=== PATIENT | female | born 1995 | race American Indian/Alaskan Native ===

== ENCOUNTER 2018-08-30 01:46 | Emergency (ER) | payer OTHER ==
[2018-08-30 01:48] VITALS: BMI 26.4
[2018-08-30] MEDS ORDERED: Albuterol 0.083% Inhal Sol (2.5 mg/3 mL) UD IH STA (03:01)
[2018-08-30 03:08] LABS: SQUAMOUS EPITHIAL 5 /hpf (0-5); URINE BACTERIA RARE (<OCC); URINE BILIRUBIN NEGATIVE (NEGATIVE); URINE BLOOD 3+ (NEGATIVE); URINE CLARITY Clear (Clear); URINE COLOR Straw (YELLOW); URINE GLUCOSE (UA) NORMAL (Normal); URINE LEUKOCYTE ESTERASE 1+ Leu/uL (Negative); URINE PROTEIN NEGATIVE (NEGATIVE); URINE UROBILINOGEN NORMAL mg/dL (0.2-1.0)
[2018-08-30 03:09] LABS: HCG,QUALITATIVE URINE NEGATIVE (NEGATIVE)
[2018-08-30] MEDS ORDERED: Albuterol 0.083% Inhal Sol (2.5 mg/3 mL) UD ONE (03:16)
--- NOTE | 2018-08-30 03:27 | C.PDOC ---
History Of Present Illness 23 y/o female, smoker presents to the ED for evaluation of productive cough for 2 months. Cough is productive of clear sputum, developed some chest tightness with coughing for past few days. Additionally, patient complains of intermittent diffuse abdominal cramping and nausea for the past month. Otherwise pt denies fevers, chills, sore throat, drooling, neck pain, CP, SOB, dyspnea, wheezing, palpitation, vomiting, diarrhea, or UTI symptoms. Ambulate to ED for evaluation, not in nay apparent distress. Strong cannabis odor noted. Time Seen by Provider: 08/30/18 02:00 Chief Complaint (Nursing): Cough, Cold, Congestion History Per: Patient History/Exam Limitations: no limitations Onset/Duration Of Symptoms: Days Current Symptoms Are (Timing): Still Present Associated Symptoms: Cough, Sputum (clear) Past Medical History Reviewed: Historical Data, Nursing Documentation, Vital Signs Vital Signs: Last Vital Signs Temp 97.4 F L 08/30/18 02:02 Pulse 67 08/30/18 02:02 Resp 20 08/30/18 02:02 BP 124/70 08/30/18 02:02 Pulse Ox 100 08/30/18 02:02 - Medical History PMH: Asthma Surgical History: No Surg Hx Family History: States: Unknown Family Hx - Social History Hx Tobacco Use: Yes Hx Alcohol Use: Yes (social) Hx Substance Use: No - Immunization History Hx Tetanus Toxoid Vaccination: No Hx Influenza Vaccination: No Hx Pneumococcal Vaccination: No Review Of Systems Constitutional: Negative for: Fever, Chills, Sweats ENT: Negative for: Throat Pain Cardiovascular: Positive for: Other (chest tightness). Negative for: Chest Pain Respiratory: Positive for: Cough, Sputum. Negative for: Shortness of Breath, Wheezing Gastrointestinal: Positive for: Nausea, Abdominal Pain. Negative for: Vomiting, Diarrhea, Constipation, Hematochezia Genitourinary: Negative for: Dysuria, Frequency, Incontinence, Hematuria Neurological: Negative for: Headache, Dizziness Physical Exam - Physical Exam Appears: Well, Non-toxic, No Acute Distress Skin: Normal Color, Warm, No Rash Head: Normacephalic Eye(s): bilateral: PERRL Ear(s): Bilateral: Normal (no erythema) Nose: No Flaring, No Discharge Oral Mucosa: Moist, No Drooling Throat: No Erythema, No Exudate, No Drooling Neck: Trachea Midline, Supple Chest: Symmetrical Cardiovascular: Rhythm Regular, No Murmur, No JVD Respiratory: No Decreased Breath Sounds, No Accessory Muscle Use, No Rales, No Rhonchi, No Stridor, Wheezing (scattered Right base) Gastrointestinal/Abdominal: Bowel Sounds (normal), Soft, Tenderness (mild epigastric tenderness), No Distention, No Guarding, No Rebound Back: No CVA Tenderness Extremity: Normal ROM, No Tenderness, No Deformity, No Swelling Extremity: Bilateral: Atraumatic, Normal Color And Temperature, Normal ROM Neurological/Psych: Oriented x3, Normal Speech, Normal Motor, Normal Sensation, Normal Reflexes ED Course And Treatment ECG: Interpreted By Me, Viewed By Me ECG Rhythm: Sinus Rhythm ECG Interpretation: Normal Interpretation Of ECG: SR@56/min, NAD, no acute T wave or ST-T changes O2 Sat by Pulse Oximetry: 100 (RA) Pulse Ox Interpretation: Normal - Radiology CXR: Interpreted by Me, Viewed By Me CXR Interpretation: Yes: No Acute Disease Progress Note: EKG ordered and reviewed. Urine sent to the lab. CXR taken. Pt given albuterol neb and po prednisone. On re-eval, pt is awake, alert, comfortable, not in resp. distress. Non-toxic, tolerate PO well in ED. PulseOx 100% RA. ENT: no acute findings. neck: SUpple, (-) JVD, (-) carotid bruits B/L. Lungs: CTA B/L, BS equal B/L. CVS: (+)S1S2, reg. Abd: benign, (-) guarding, (-) rebound. neuorlogicaly intact. CXR, EKG -normal s tudy. UA- no acute findings. preg (-). Pt has clinical findings c/w acute bronchitis, asthma, smoker. EPigastric pain. Pt advised. ref. to f/u with PMD in 1-2 days for re-eavl. return if any worsening or new changes. Disposition Counseled Patient/Family Regarding: Studies Performed, Diagnosis, Need For Followup, Rx Given - Disposition Referrals: Sil Cerrato MD [Staff Provider] - Disposition: HOME/ ROUTINE Disposition Time: 03:32 Condition: STABLE Additional Instructions: Encourage fluids Take medication as prescribed Follow up with PMD in 2-3 days for re-evaluation. return to ED if any worsening or new changes Prescriptions: Albuterol HFA [Ventolin HFA 90 mcg/actuation (8 g)] 1 puff IH Q6 #1 inhaler Azithromycin [Zithromax] 250 mg PO DAILY #4 tab Prednisone [Deltasone] 40 mg PO DAILY #6 tablet Instructions: Asthma, Adult (DC), Acute Bronchitis Forms: [facility] (Dominican) - Clinical Impression Clinical Impression: Bronchitis, Asthma, Epigastric abdominal pain - PA / [employer] / Resident Statement MD/DO has reviewed & agrees with the documentation as recorded. - Scribe Statement The provider has reviewed the documentation as recorded by the Scribe (Stacey Travis) All medical record entries made by the Scribe were at my direction and personally dictated by me. I have reviewed the chart and agree that the record accurately reflects my personal performance of the history, physical exam, medical decision making, and the department course for this patient. I have also personally directed, reviewed, and agree with the discharge instructions and disposition.
[2018-08-30 03:34] VITALS: RESP 16
[2018-08-30 03:42] VITALS: O2SAT 100
[2018-08-30 03:59] VITALS: BP 107/81; PULSE 63; TEMP 97.8
--- NOTE | 2018-08-30 09:21 | RAD ---
Date of service: 08/30/2018 HISTORY: Cough COMPARISON: No prior. TECHNIQUE: Chest PA and lateral FINDINGS: LUNGS: No active pulmonary disease. PLEURA: No significant pleural effusion identified. No pneumothorax apparent. CARDIOVASCULAR: No aortic atherosclerotic calcification present. Normal cardiac size. No pulmonary vascular congestion. OSSEOUS STRUCTURES: No significant abnormalities. VISUALIZED UPPER ABDOMEN: Normal. OTHER FINDINGS: None. IMPRESSION: No active disease.
--- NOTE | 2018-08-31 20:04 | CARD ---
APPROVED REPORT Date of service: 08/30/2018 EKG Measurement Heart [id number] <Conclusion> Sinus bradycardia Otherwise normal ECG
== END 2018-08-30 03:58 | disposition home or self-care (01) ==
LOC: C.ER 01:46
DX: J45.909 Unspecified asthma, uncomplicated (principal); R10.13 Epigastric pain

== ENCOUNTER 2018-10-03 12:48 | Emergency (ER) | payer OTHER ==
[2018-10-03 12:48] VITALS: BMI 26.4
[2018-10-03 13:04] VITALS: O2SAT 100
[2018-10-03] MEDS ORDERED: Sodium Chloride 0.9% 1,000 ML IV ONE (13:48)
[2018-10-03] MEDS ORDERED: Sodium Chloride 0.9% 1,000 ML ONE (14:03)
--- NOTE | 2018-10-03 14:04 | C.PDOC ---
History Of Present Illness 23 years old female presents to ED for complaints of developing swelling, pain, and redness of right mandible that began yesterday. Patient reports she has bad dental caries on that side. She also reports associated fever, chills, nausea, and headache. Patient states she experienced similar symptoms over the summer but symptoms resolved spontaneously. Patent states she has not seen a dentist. Time Seen by Provider: 10/03/18 13:35 Chief Complaint (Nursing): Abdominal Pain History Per: Patient History/Exam Limitations: no limitations Onset/Duration Of Symptoms: Hrs Current Symptoms Are (Timing): Still Present Recent travel outside of the [place]: No Past Medical History Reviewed: Historical Data, Nursing Documentation, Vital Signs Vital Signs: Last Vital Signs Temp 97.4 F L 10/03/18 13:01 Pulse 85 10/03/18 13:01 Resp 19 10/03/18 13:01 BP 104/68 10/03/18 13:01 Pulse Ox 100 10/03/18 13:01 - Medical History PMH: Asthma, Seizures Family History: States: Unknown Family Hx - Social History Hx Tobacco Use: Yes Hx Alcohol Use: No (social) Hx Substance Use: No - Immunization History Hx Tetanus Toxoid Vaccination: No Hx Influenza Vaccination: No Hx Pneumococcal Vaccination: No Review Of Systems Constitutional: Positive for: Fever, Chills Gastrointestinal: Positive for: Nausea. Negative for: Vomiting, Abdominal Pain, Diarrhea Skin: Positive for: Other (Swelling, pain, and redness of right mandible) Neurological: Positive for: Headache Physical Exam - Physical Exam Appears: Non-toxic, No Acute Distress Skin: Normal Color, Warm, Dry, No Rash Head: Atraumatic, Normacephalic Eye(s): bilateral: Normal Inspection, PERRL, EOMI Oral Mucosa: Moist Gingiva: Other (Swelling, redness, tenderness of jaw and submandibular. Swelling along buccal gingiva with tenderness. Floor of mouth not swollen. Right lower second molars cracked. ) Neck: Normal ROM, Supple Chest: Symmetrical, No Tenderness Cardiovascular: Rhythm Regular, No Murmur Respiratory: Normal Breath Sounds, No Rales, No Rhonchi, No Wheezing Gastrointestinal/Abdominal: Soft, No Tenderness Extremity: Normal ROM Extremity: Bilateral: Atraumatic, Normal Color And Temperature, Normal ROM Pulses: Left Radial: Normal, Right Radial: Normal Neurological/Psych: Oriented x3, Normal Speech Gait: Steady ED Course And Treatment - Laboratory Results Result Diagrams: 10/03/18 14:22 10/03/18 14:22 Lab Interpretation: No Acute Changes O2 Sat by Pulse Oximetry: 100 (RA) Pulse Ox Interpretation: Normal - CT Scan/US Facial CT Other Rad Studies (CT/US): Read By Radiologist, Radiology Report Reviewed CT/US Interpretation: Accession No. : [id number]. Patient Name / ID : TERRENCE GUTIERREZ / [id number]. Exam Date : 10/03/2018 16:08:31 ( Approved ). Study Comment : Sex / Age : F / 23Y. Creator : Jaydon Ovalle. Dictator : Janett Markham. Director Of Patient Financial Services : Water Pump Installer : Janett Markham. Approver2 : Report Date : 10/03/2018 16:16:39. My Comment : . Date of service: 10/03/2018. PROCEDURE: CT MAXILLOFACIAL BONES WITH CONTRAST. HISTORY: r/o abscess right mandible. COMPARISON: None. TECHNIQUE: Contiguous axial CT images of the maxillofacial bones were obtained following administration of IV contrast. Coronal and sagittal reformats were generated. Intravenous contrast Dose: 100 mL of Visipaque 320. Radiation dose: Total exam DLP = 716.53 mGy-cm. This CT exam was performed using one or more of the following dose reduction techniques: Automated exposure control, adjustment of the mA and/or kV according to patient size, and/or use of iterative reconstruction technique. FINDINGS: NASAL BONES: Unremarkable. OR BITS: Unremarkable. PARANASAL SINUSES/ MASTOIDS: Clear. MAXILLA: Unremarkable. MANDIBLE/ TEMPOROMANDIBULAR JOINTS: There asymmetry in the size and the sclerotic borders to the left and right mental foramen of the mandible (axial series 4, image 49-that on the right has less sclerotic margins in that on the right has a larger foraminal diameter associated with it. There is a sclerosis in the left mandibular body which is not apparent on right side (axial series 4, image 45). Bordering this asymmetrical prominence of the right mental foramen there is diffuse asymmetrical soft tissue prominence of the right perimandibular musculature here. A phlegmon here or diffuse myositis here is a consideration. There is a superficial nearly flat tiny 8 x 4 mm focal low- density compatible with a small right periosteal/subperiosteal developing abscess (axis series 3, image 30). There is increased right periapical posterior mandibular tooth radiolucency consistent with caries here-this is r egional to the right perimandibular asymmetrical soft tissue findings and the small focal flat fluid like collection as well. (series 4, image 59). No periosteal reaction is perceived. No gross or suspicious appearing lymphadenopathy seen. No gas-forming cellulitis noted. SKULL BASE: Unremarka ble. TEMPORAL BONES: Middle ears and mastoid grossly unremarkable. OTHER FINDINGS: Dental amalgam artifact obscures further evaluation of the right mandible. IMPRESSION: Right/buccal sided flory mandibular body asymmetrical muscle soft tissue swelling/prominence with small flat juxta osseous/gilbert bperiosteal fluid collection compatible with a small flat developing abscess here. This is regional to posterior right mandibular periapical lucency compatible with caries here. Dental/oral surgical consultation follow-up recommended. Reevaluation Time: 18:09 Reassessment Condition: Improved (after Iv antibiotics and pain medication.) Medical Decision Making Medical Decision Making: Plan: * IV Fluids * Toradol * Zofran * Blood work * Urinalysis Disposition - Disposition Referrals: [facility] [Outside] Disposition: HOME/ ROUTINE Disposition Time: 18:10 Condition: IMPROVED Additional Instructions: Follow up with your dentist as soon as possible. Prescriptions: Acetaminophen with Codeine [Tylenol with Codeine #3 Tablet] 1 each PO Q4 PRN #10 tablet PRN Reason: Pain, Severe (8-10) Clindamycin [Cleocin] 300 mg PO QID #40 cap Instructions: Tooth Abscess (DC) Forms: [employer] (Irish) - Clinical Impression Clinical Impression: Dental abscess - Scribe Statement The provider has reviewed the documentation as recorded by the Scribe Xavier Linares All medical record entries made by the Scribe were at my direction and personally dictated by me. I have reviewed the chart and agree that the record accurately reflects my personal performance of the history, physical exam, medical decision making, and the department course for this patient. I have also personally directed, reviewed, and agree with the discharge instructions and disposition.
[2018-10-03 14:35] LABS: BASO % 0.3 % (0.0-2.0); EOS % 0.3 % (0.0-4.0); HEMOGLOBIN 13.1 g/dL (11.0-16.0); LYMPH # 0.9 K/uL (1.0-4.3); LYMPH % 16.2 % (20.0-40.0); MEAN CELL VOLUME 82.5 fL (81.0-99.0); MEAN CORPUSCULAR HGB CONC 32.7 g/dL (33.0-37.0); MEAN PLATELET VOLUME 9.4 fL (7.2-11.7); MONO # 0.5 K/uL (0.0-0.8); MONO % 8.1 % (0.0-10.0); NEUT # 4.3 K/uL (1.8-7.0); NEUT % 75.1 % (50.0-75.0); RBC 4.87 Mil/uL (3.80-5.20); RED CELL DISTRIBUTION WIDTH 15.3 % (11.5-14.5); WHITE BLOOD COUNT 5.8 K/uL (4.8-10.8)
[2018-10-03 14:36] LABS: HCG,QUALITATIVE URINE NEGATIVE (NEGATIVE)
[2018-10-03 14:45] LABS: ALB/GLOB RATIO 1.5 (1.0-2.1); ALBUMIN 4.2 g/dL (3.5-5.0); ALT/SGPT 18 U/L (9-52); AST/SGOT 18 U/L (14-36); BLOOD UREA NITROGEN 8 mg/dL (7-17); CALCIUM 8.5 mg/dl (8.6-10.4); GFR NON-AFRICAN AMERICAN > 60
[2018-10-03 14:56] LABS: SQUAMOUS EPITHIAL 11 /hpf (0-5); URINE BILIRUBIN 1+ (NEGATIVE); URINE BLOOD 1+ (NEGATIVE); URINE CLARITY Hazy (Clear); URINE COLOR Amber (YELLOW); URINE GLUCOSE (UA) NORMAL (Normal); URINE LEUKOCYTE ESTERASE TRACE Leu/uL (Negative); URINE PROTEIN 3+ mg/dL (NEGATIVE)
[2018-10-03] MEDS ORDERED: Iodixanol 320 MG/ML 100 ML BOTTLE IV ONE ×2 (15:49→16:32)
--- NOTE | 2018-10-03 16:52 | CT ---
Date of service: 10/03/2018 PROCEDURE: CT MAXILLOFACIAL BONES WITH CONTRAST HISTORY: r/o abscess right mandible COMPARISON: None. TECHNIQUE: Contiguous axial CT images of the maxillofacial bones were obtained following administration of IV contrast. Coronal and sagittal reformats were generated. Intravenous contrast Dose: 100 mL of Visipaque 320 Radiation dose: Total exam DLP = 716.53 mGy-cm. This CT exam was performed using one or more of the following dose reduction techniques: Automated exposure control, adjustment of the mA and/or kV according to patient size, and/or use of iterative reconstruction technique. FINDINGS: NASAL BONES: Unremarkable. ORBITS: Unremarkable. PARANASAL SINUSES/ MASTOIDS: Clear. MAXILLA: Unremarkable. MANDIBLE/ TEMPOROMANDIBULAR JOINTS: There asymmetry in the size and the sclerotic borders to the left and right mental foramen of the mandible (axial series 4, image 49-that on the right has less sclerotic margins in that on the right has a larger foraminal diameter associated with it. There is a sclerosis in the left mandibular body which is not apparent on right side (axial series 4, image 45). Bordering this asymmetrical prominence of the right mental foramen there is diffuse asymmetrical soft tissue prominence of the right perimandibular musculature here. A phlegmon here or diffuse myositis here is a consideration. There is a superficial nearly flat tiny 8 x 4 mm focal low-density compatible with a small right periosteal/subperiosteal developing abscess (axis series 3, image 30). There is increased right periapical posterior mandibular tooth radiolucency consistent with caries here-this is regional to the right perimandibular asymmetrical soft tissue findings and the small focal flat fluid like collection as well. (series 4, image 59). No periosteal reaction is perceived. No gross or suspicious appearing lymphadenopathy seen. No gas-forming cellulitis noted. SKULL BASE: Unremarkable. TEMPORAL BONES: Middle ears and mastoid grossly unremarkable. OTHER FINDINGS: Dental amalgam artifact obscures further evaluation of the right mandible IMPRESSION: Right/buccal sided flory mandibular body asymmetrical muscle soft tissue swelling/prominence with small flat juxta osseous/subperiosteal fluid collection compatible with a small flat developing abscess here. This is regional to posterior right mandibular periapical lucency compatible with caries here. Dental/oral surgical consultation follow-up recommended. Comments: Study marked for PA review .
[2018-10-03] MEDS ORDERED: Clindamycin 600mg/50ml D5W 600 MG/50 ML VIAL IVPB SCH (17:15)
[2018-10-03] MEDS ORDERED: Clindamycin 600mg/50ml NS 600 MG/50 ML BAG IVPB ONE (17:26)
[2018-10-03 18:44] VITALS: BP 99/61; PULSE 64; RESP 18; TEMP 97.9
== END 2018-10-03 18:45 | disposition home or self-care (01) ==
LOC: C.ER 12:48
DX: K04.7 Periapical abscess without sinus (principal); Z72.0 Tobacco use
CPT/HCPCS: 70481; 80053; 81001; 84703; 85025; 96374; 96375; 99285; J1885; J2405; J7030; Q9967

== ENCOUNTER 2018-10-23 15:31 | Emergency (ER) | payer OTHER ==
[2018-10-23 15:31] VITALS: BMI 26.4
[2018-10-23] MEDS ORDERED: levETIRAcetam 1,000 MG in Sodium Chloride 0.9% 100 ML IVPB STA (15:41)
--- NOTE | 2018-10-23 15:52 | C.PDOC ---
History Of Present Illness 23 y/o female presents to the ED following witnessed seizure this afternoon. Patient reports she had a seizure yesterday morning. She admits to noncompliance with her Keppra regimen. Reports her boyfriend gave her the medication yest erday, however she did not take medication today, and subsequently had another seizure. She now presents complaining of a headache. States she was incontinent of urine when she came to. Otherwise denies any tongue bite or injury. No obvious head trauma. Time Seen by Provider: 10/23/18 15:36 Chief Complaint (Nursing): Seizure History Per: Patient History/Exam Limitations: no limitations Recent Seizure Activity Began: Just Before Arrival Number Of Seizures: One Precipitating Factor(s): Missed Dose Of Anti-seizure Medication Associated Symptoms: Incontinence Of Urine Past Medical History Reviewed: Historical Data, Nursing Documentation, Vital Signs Vital Signs: Last Vital Signs Temp 98.7 F 10/23/18 15:38 Pulse 66 10/23/18 15:38 Resp 14 10/23/18 15:38 BP 99/40 L 10/23/18 15:38 Pulse Ox 97 10/23/18 15:38 - Medical History PMH: Asthma, Seizures Family History: States: Unknown Family Hx - Social History Hx Tobacco Use: Yes Hx Alcohol Use: No (social) Hx Substance Use: No - Immunization History Hx Tetanus Toxoid Vaccination: No Hx Influenza Vaccination: No Hx Pneumococcal Vaccination: No Review Of Systems Constitutional: Negative for: Fever, Chills Eyes: Negative for: Vision Change ENT: Negative for: Other (tongue bite) Cardiovascular: Negative for: Chest Pain Respiratory: Negative for: Cough, Shortness of Breath Gastrointestinal: Negative for: Nausea, Vomiting Musculoskeletal: Negative for: Neck Pain, Back Pain Skin: Negative for: Lesions Neurological: Positive for: Seizures, Headache. Negative for: Weakness, Numbness, Change in Speech, Dizziness Physical Exam - Physical Exam Appears: Non-toxic, No Acute Distress Skin: Warm, Dry Head: Atraumatic, Normacephalic, No Swelling, No Laceration Eye(s): bilateral: Normal Inspection, PERRL, EOMI Nose: Normal Oral Mucosa: Moist Neck: Normal ROM Chest: Symmetrical Cardiovascular: Rhythm Regular, No Murmur Respiratory: Normal Breath Sounds, No Accessory Muscle Use Gastrointestinal/Abdominal: Soft, No Tenderness, No Distention Extremity: Bilateral: Atraumatic, Normal Color And Temperature Pulses: Left Dorsalis Pedis: Normal, Right Dorsalis Pedis: Normal Neurological/Psych: Other (Alert, Oriented, responding appropriate to questions) ED Course And Treatment - Laboratory Results Result Diagrams: 10/23/18 15:56 10/23/18 15:56 Lab Interpretation: No Acute Changes ECG: Interpreted By Me ECG Rhythm: Sinus Bradycardia ECG Interpretation: No Acute Changes O2 Sat by Pulse Oximetry: 97 (RA) Pulse Ox Interpretation: Normal Progress Note: Patient treated with Keppra 1000mg IVPB in ED. Reevaluation Time: 17:22 Reassessment Condition: Improved Medical Decision Making Medical Decision Making: Impression: Seizures Plan: - CMP - CBC - EKG - IV Keppra 1000mg infusing Disposition Counseled Patient/Family Regarding: Studies Performed, Diagnosis, Need For Followup - Disposition Referrals: [facility] [Outside] Disposition: HOME/ ROUTINE Disposition Time: 17:23 Condition: IMPROVED Instructions: Seizures, Adult (DC) Forms: [facility] (Uzbek) - Clinical Impression Clinical Impression: Seizure disorder - Scribe Statement The provider has reviewed the documentation as recorded by the Jamee Travis Provider Attestation: All medical record entries made by the Poloibe were at my direction and personally dictated by me. I have reviewed the chart and agree that the record accurately reflects my personal performance of the history, physical exam, medical decision making, and the department course for this patient. I have also personally directed, reviewed, and agree with the discharge instructions and disposition.
[2018-10-23 16:00] LABS: BASO % 0.7 % (0.0-2.0); EOS # 0.1 K/uL (0.0-0.7); EOS % 1.6 % (0.0-4.0); HEMOGLOBIN 12.5 g/dL (11.0-16.0); LYMPH # 1.7 K/uL (1.0-4.3); LYMPH % 38.5 % (20.0-40.0); MEAN CORPUSCULAR HEMOGLOBIN 26.4 pg (27.0-31.0); MEAN PLATELET VOLUME 9.5 fL (7.2-11.7); MONO # 0.3 K/uL (0.0-0.8); MONO % 6.9 % (0.0-10.0); NEUT # 2.3 K/uL (1.8-7.0); NEUT % 52.3 % (50.0-75.0); NRBC % 0.2 % (0.0-2.0); RBC 4.74 Mil/uL (3.80-5.20); RED CELL DISTRIBUTION WIDTH 15.3 % (11.5-14.5); WHITE BLOOD COUNT 4.5 K/uL (4.8-10.8)
[2018-10-23 16:19] LABS: ALB/GLOB RATIO 1.6 (1.0-2.1); ALBUMIN 4.2 g/dL (3.5-5.0); ALT/SGPT 20 U/L (9-52); AST/SGOT 22 U/L (14-36); BLOOD UREA NITROGEN 7 mg/dL (7-17); GFR NON-AFRICAN AMERICAN > 60
[2018-10-23 17:35] VITALS: BP 103/63; PULSE 63; RESP 15; TEMP 98.2; O2SAT 98
--- NOTE | 2018-10-25 15:34 | CARD ---
APPROVED REPORT Date of service: 10/23/2018 EKG Measurement Heart [id number] <Conclusion> Sinus bradycardia with sinus arrhythmia Otherwise normal ECG
== END 2018-10-23 17:40 | disposition home or self-care (01) ==
LOC: C.ER 15:31
DX: G40.909 Epilepsy, unspecified, not intractable, without status epilepticus (principal)
CPT/HCPCS: 80053; 82948; 85025; 93005; 96374; 99285; J1953

== ENCOUNTER 2018-12-03 11:29 | Emergency (ER) | payer MEDICAID, OTHER ==
[2018-12-03 11:29] VITALS: BMI 26.4
[2018-12-03 11:38] VITALS: RESP 18
--- NOTE | 2018-12-03 12:05 | C.PDOC ---
History Of Present Illness 23 y/o female,w/PMhx of epilepsy, depression, and bipolar disorder, brought to ER by BLS with boyfriend for evaluation of seizure which occurred approximately 1.5 hours [employer]. Patient states that she was in [place] when she had 1 minute long witnessed tonic-clonic seizure with associated urinary incontinence. Patient reports that she was confused after the seizure. Patient notes that the seizure was typical of her usual seizures. She states that she is supposed to take Keppra for seizures, however she did not take it for the past 1 month. She took Keppra 250 mg x2 yesterday and 250 mg x 1 in the morning today. She had an appointment with new neurologist. However, she had a seizure so she decided to come to the ER. C/o mild frontal headache. Denies tongue bite, fever, chills, neck pain, CP, SOB, nausea, vomiting, back pain, dysuria, hematuria, weakness, paresthesias, and numbness. Time Seen by Provider: 12/03/18 11:43 Chief Complaint (Nursing): Seizure History Per: Patient History/Exam Limitations: no limitations Number Of Seizures: One Past Medical History Reviewed: Historical Data, Nursing Documentation, Vital Signs Vital Signs: Last Vital Signs Temp 98.3 F 12/03/18 11:37 Pulse 65 12/03/18 11:37 Resp 18 12/03/18 11:37 BP 102/66 12/03/18 11:37 Pulse Ox 100 12/03/18 11:37 - Medical History PMH: Asthma, Bipolar Disorder, Bronchitis, Seizures Surgical History: No Surg Hx Family History: States: No Known Family Hx - Social History Hx Tobacco Use: Yes Hx Alcohol Use: No (social) Hx Substance Use: No - Immunization History Hx Tetanus Toxoid Vaccination: No Hx Influenza Vaccination: No Hx Pneumococcal Vaccination: No Review Of Systems Except As Marked, All Systems Reviewed And Found Negative. Constitutional: Negative for: Fever, Chills Eyes: Negative for: Vision Change ENT: Negative for: Nose Congestion, Throat Pain Cardiovascular: Negative for: Chest Pain, Palpitations, Light Headedness Respiratory: Negative for: Cough, Shortness of Breath Gastrointestinal: Negative for: Nausea, Vomiting, Abdominal Pain, Diarrhea, Constipation Genitourinary: Positive for: Incontinence. Negative for: Dysuria, Hematuria Musculoskeletal: Negative for: Neck Pain, Back Pain Neurological: Positive for: Seizures, Headache. Negative for: Weakness, Numbnes s, Altered Mental Status, Dizziness Psych: Negative for: Suicidal ideation, Withdrawal Physical Exam - Physical Exam Appears: Well, Non-toxic, No Acute Distress Skin: Normal Color, Warm, Dry Head: Atraumatic, Normacephalic Eye(s): bilateral: Normal Inspection, PERRL, EOMI Nose: Normal Oral Mucosa: Moist Neck: Normal, Normal ROM, Supple, No Other (no meningeal signs) Chest: Symmetrical Cardiovascular: Rhythm Regular Respiratory: Normal Breath Sounds, No Rales, No Rhonchi, No Wheezing Gastrointestinal/Abdominal: Normal Exam, Soft, No Tenderness, No Guarding, No Rebound Back: Normal Inspection, No CVA Tenderness Extremity: Normal ROM, Capillary Refill (<2s) Pulses: Left Radial: Normal, Right Radial: Normal Neurological/Psych: Oriented x3, Normal Speech, Normal Cognition, Normal Cranial Nerves, No Cerebellar Signs, Normal Motor, Normal Sensation Gait: Steady ED Course And Treatment - Laboratory Results Result Diagrams: 12/03/18 12:19 12/03/18 12:19 ECG: Viewed By In ECG Rhythm: Sinus Rhythm ECG Interpretation: No Acute Changes O2 Sat by Pulse Oximetry: 100 (RA) Pulse Ox Interpretation: Normal - Physician Consult Information Time Consulting Physician Contacted: 12:05 Physician Contacted: Destin Dalton Outcome Of Conversation: Advises 1000mg IV Keppra here and 500mg PO Keppra every 12 hours from now on. Advises neurology followup tomorrow. Medical Decision Making Medical Decision Making: Plan: --Labs --UA --Tylenol PO On initial evaluation, patient is A&Ox3 without focal neurologic deficits. Pt appears mildly postictal and sleepy but otherwise is well appearing in NAD. VSS. Complaining only of mild frontal headache. Updates: 1204 Spoke with neuro continuing education specialist, Dr. Dalton who recommends loading dose of 1000mg IV Keppra now and a prescription for 500mg Keppra q12h, next dose tomorrow morning. Advises neurology followup tomorrow. 1440 Labwork reviewed, unremarkable Patient visibly upset, arguing with boyfriend. Voices thoughts of hurting herself. Psychiatry consulted. 1730 Patient cleared for discharge through Dr. Hernadez, psychiatry. Rescinds threats of self harm. [place] [facility] [place] Discussed with patient in depth the importance of medication compliance and quick followup. Pt and boyfriend verbalized understanding. Pt states she feels much better and is comfortable for discharge. Diagnostic testing results and plan of care discussed with patient. Strict instructions given regarding prescription use, importance of followup, and signs/symptoms to return to ER including persistent seizures, fever, neck pain/stiffness, vision changes, dizziness, or any other new/worsening symptoms. Pt verbalized understanding of discussion. Patient is A&Ox3, ambulating with steady gait, with vital signs stable for discharge. Disposition - Disposition Referrals: Destin Dalton MD [Staff Provider] - Disposition: HOME/ ROUTINE Disposition Time: 17:30 Condition: IMPROVED Additional Instructions: Take Keppra 500mg every 12 hours, next dose TOMORROW MORNING Followup with neurology TOMORROW Followup with psychiatry within 2 days Followup with primary doctor within 2 days Return to ER with any new/worsening symptoms Prescriptions: Levetiracetam [Keppra] 500 mg PO Q12H #14 tablet Instructions: Seizures, Adult (DC) Forms: General Discharge Instructions, [facility] (Urdu), Work Excuse - Clinical Impression Clinical Impression: Seizure - 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 - Scribe Statement The provider has reviewed the documentation as recorded by the Poloibe Wandy Fiore Provider Attestation All medical record entries made by the Jamee were at my direction and personally dictated by me. I have reviewed the chart and agree that the record accurately reflects my personal performance of the history, physical exam, medical decision making, and the department course for this patient. I have also personally directed, reviewed, and agree with the discharge instructions and disposition.
[2018-12-03] MEDS ORDERED: levETIRAcetam 1,000 MG in Sodium Chloride 0.9% 100 ML IVPB SCH (12:15)
[2018-12-03 12:28] LABS: BASO # 0.1 K/uL (0.0-0.2); BASO % 0.6 % (0.0-2.0); EOS # 0.1 K/uL (0.0-0.7); EOS % 0.8 % (0.0-4.0); HEMOGLOBIN 13.4 g/dL (11.0-16.0); LYMPH # 1.3 K/uL (1.0-4.3); MEAN CORPUSCULAR HEMOGLOBIN 26.8 pg (27.0-31.0); MEAN CORPUSCULAR HGB CONC 32.5 g/dL (33.0-37.0); MEAN PLATELET VOLUME 9.7 fL (7.2-11.7); MONO # 0.7 K/uL (0.0-0.8); MONO % 7.5 % (0.0-10.0); NEUT # 7.6 K/uL (1.8-7.0); NEUT % 78.1 % (50.0-75.0); RBC 5.01 Mil/uL (3.80-5.20); RED CELL DISTRIBUTION WIDTH 15.5 % (11.5-14.5)
[2018-12-03 12:30] LABS: MEAN CELL VOLUME 82.4 fL (81.0-99.0); WHITE BLOOD COUNT 9.8 K/uL (4.8-10.8)
[2018-12-03 12:36] LABS: ALB/GLOB RATIO 1.4 (1.0-2.1); ALBUMIN 4.8 g/dL (3.5-5.0); BLOOD UREA NITROGEN 10 mg/dL (7-17); CALCIUM 9.1 mg/dl (8.6-10.4); GFR NON-AFRICAN AMERICAN > 60
[2018-12-03 12:39] LABS: ALT/SGPT 9 U/L (9-52); AST/SGOT 32 U/L (14-36)
[2018-12-03 14:29] LABS: SQUAMOUS EPITHIAL 3 /hpf (0-5); URINE BILIRUBIN NEGATIVE (NEGATIVE); URINE BLOOD NEGATIVE (NEGATIVE); URINE CLARITY Hazy (Clear); URINE COLOR Yellow (YELLOW); URINE GLUCOSE (UA) NORMAL (Normal); URINE LEUKOCYTE ESTERASE TRACE Leu/uL (Negative); URINE PROTEIN 2+ mg/dL (NEGATIVE); URINE UROBILINOGEN NORMAL mg/dL (0.2-1.0)
[2018-12-03 14:35] VITALS: TEMP 97.6
[2018-12-03 16:07] LABS: BARBITURATES, UR NEGATIVE (NEGATIVE); BENZODIAZEPINES, UR NEGATIVE (NEGATIVE); OPIATES, UR NEGATIVE (NEGATIVE); PHENCYCLIDINE, UR NEGATIVE (NEGATIVE)
[2018-12-03 17:15] VITALS: BP 109/67; PULSE 73
[2018-12-03 21:12] VITALS: O2SAT 100
--- NOTE | 2018-12-04 12:03 | CARD ---
APPROVED REPORT Date of service: 12/03/2018 EKG Measurement Heart [id number] <Conclusion> Normal sinus rhythm Normal ECG
== END 2018-12-03 17:45 | disposition home or self-care (01) ==
LOC: C.ER 11:29
DX: R56.9 Unspecified convulsions (principal); J45.909 Unspecified asthma, uncomplicated; F17.210 Nicotine dependence, cigarettes, uncomplicated
CPT/HCPCS: 80053; 80177; 80320; 80324; 80345; 80346; 80349; 80353; 80358; 80361; 81001; 81025; 82948; 83992; 85025; 93005; 96365; 99285; J1953

== ENCOUNTER 2018-12-14 17:12 | Emergency (ER) | payer OTHER ==
[2018-12-14 17:13] VITALS: BMI 26.4
[2018-12-14 17:26] VITALS: BP 110/69; PULSE 86; TEMP 97.4
--- NOTE | 2018-12-14 17:33 | C.PDOC ---
History Of Present Illness 23 y/o female is brought in by [facility] after an episode of a witnessed seizure today. Patient had the seizure while she was having an emotional argument with her boyfriend who was at bedside. Patient was seen here previously for seizures on 11/25/18 and 12/03/18, and has poor compliance with depakote 500 PO BID. Patient states she has not followed up with Dr. Dalton as instructed in prior evaluation. Time Seen by Provider: 12/14/18 17:25 Chief Complaint (Nursing): Seizure History Per: Patient, EMS History/Exam Limitations: no limitations Recent Seizure Activity Began: Just Before Arrival Past Medical History Reviewed: Historical Data, Nursing Documentation, Vital Signs Vital Signs: Last Vital Signs Temp 97.4 F L 12/14/18 17:22 Pulse 86 12/14/18 17:22 Resp 16 12/14/18 17:22 BP 110/69 12/14/18 17:22 Pulse Ox 86 L 12/14/18 17:22 - Medical History PMH: Asthma, Bipolar Disorder, Bronchitis, Seizures Denies: Diabetes, Hepatitis, HIV, HTN, Sexually Transmitted Disease Family History: States: No Known Family Hx - Social History Hx Tobacco Use: Yes Hx Alcohol Use: No (social) Hx Substance Use: No - Immunization History Hx Tetanus Toxoid Vaccination: No Hx Influenza Vaccination: No Hx Pneumococcal Vaccination: No Review Of Systems Except As Marked, All Systems Reviewed And Found Negative. Constitutional: Negative for: Fever, Chills Cardiovascular: Negative for: Chest Pain Respiratory: Negative for: Shortness of Breath Gastrointestinal: Negative for: Nausea, Vomiting Musculoskeletal: Negative for: Neck Pain Neurological: Positive for: Seizures. Negative for: Dizziness Physical Exam - Physical Exam Appears: Non-toxic, No Acute Distress Skin: Warm, Dry Head: Atraumatic, Normacephalic, No Abrasion Eye(s): bilateral: PERRL, EOMI Oral Mucosa: Moist Neck: Supple Cardiovascular: Rhythm Regular, No Murmur Respiratory: Normal Breath Sounds, No Rales, No Rhonchi, No Wheezing Gastrointestinal/Abdominal: Soft, No Tenderness Extremity: Bilateral: Atraumatic, Normal Color And Temperature, Normal ROM Neurological/Psych: Oriented x3, Normal Speech, Normal Cognition, Normal Motor ED Course And Treatment O2 Sat by Pulse Oximetry: 99 (RA) Pulse Ox Interpretation: Normal Medical Decision Making Medical Decision Making: Plan: --Keppra 500 mg PO normal eval szr's 11/25 and 12/03 with ? compliance with Keppra 500 PO BID no need to repeat labs did not f/u with Neuro after 12/03 visit again, encouraged to f/u with Neuro Disposition Doctor Will See Patient In The: Office Counseled Patient/Family Regarding: Studies Performed, Diagnosis - Disposition Referrals: [facility] [Outside] [facility] [Outside] [facility] [Outside] Destin Dalton MD [Staff Provider] - Disposition: HOME/ ROUTINE Disposition Time: 17:33 Condition: GOOD Additional Instructions: continue Keppra 500 mg twice a day avoid alcohol, marijuana and emotionally stressful situations follow-up with Dr. Dalton- Neurology, for further eval and meds adjustments. Instructions: Epilepsy in Adults Forms: [facility] (Libyan) - Clinical Impression Clinical Impression: Tonic-clonic seizure - Scribe Statement The provider has reviewed the documentation as recorded by the Poloibbijal Bauer Provider Attestation: All medical record entries made by the Poloibbijal were at my direction and personally dictated by me. I have reviewed the chart and agree that the record accurately reflects my personal performance of the history, physical exam, medical decision making, and the department course for this patient. I have also personally directed, reviewed, and agree with the discharge instructions and disposition.
[2018-12-14 17:53] VITALS: RESP 18; O2SAT 99
== END 2018-12-14 17:53 | disposition home or self-care (01) ==
LOC: C.ER 17:12
DX: G40.89 Other seizures (principal)

== ENCOUNTER 2019-01-07 12:46 | Outpatient (CLI) | payer OTHER | END 2019-01-07 12:47 | disposition home or self-care (01) | LOC: C.RADH 12:46 | DX: M79.672 Pain in left foot (principal) ==

== ENCOUNTER 2019-03-06 02:08 | Emergency (ER) | payer OTHER ==
[2019-03-06 02:08] VITALS: BMI 26.4
--- NOTE | 2019-03-06 02:45 | C.PDOC ---
History Of Present Illness Patient presents to ED with complaint of abdominal pain and pelvic pain since yesterday. She states that her IUD is bothering her. She is unsure whether a piece of her IUD came out or not. Patient denies nausea ,vomiting, vaginal ble eding, and vaginal discharge. Time Seen by Provider: 03/06/19 02:44 Chief Complaint (Nursing): Abdominal Pain History Per: Patient History/Exam Limitations: no limitations Onset/Duration Of Symptoms: Days (1) Current Symptoms Are (Timing): Still Present Context: Other (IUD) Severity: Moderate Pain Scale Rating Of: 4 Location Of Pain/Discomfort: Suprapubic, Other (pelvic) Radiation Of Pain To:: None Quality Of Discomfort: "Pain" Associated Symptoms: denies: Fever, Chills, Nausea, Vomiting, Urinary Symptoms, Other (vaginal discharge) Exacerbating Factors: None Alleviating Factors: None Recent travel outside of the [place]: No Additional History Per: Patient Abnormal Vaginal Bleeding: No Past Medical History Reviewed: Historical Data, Nursing Documentation, Vital Signs Vital Signs: Last Vital Signs Temp 97.5 F L 03/06/19 02:39 Pulse 56 L 03/06/19 02:39 Resp 20 03/06/19 02:39 BP 99/63 L 03/06/19 02:39 Pulse Ox 100 03/06/19 02:39 Primary Care Provider: FAMILY PROVIDER,NO - Medical History PMH: Asthma, Bipolar Disorder, Bronchitis, Seizures Denies: Diabetes, Hepatitis, HIV, HTN, Sexually Transmitted Disease Surgical History: No Surg Hx Family History: States: Unknown Family Hx - Social History Hx Tobacco Use: Yes Hx Alcohol Use: No (social) Hx Substance Use: No - Immunization History Hx Tetanus Toxoid Vaccination: No Hx Influenza Vaccination: No Hx Pneumococcal Vaccination: No Review Of Systems Constitutional: Negative for: Fever, Chills, Weakness Gastrointestinal: Positive for: Abdominal Pain. Negative for: Nausea, Vomiting Genitourinary: Positive for: Pelvic Pain. Negative for: Dysuria, Hematuria, Vaginal Discharge, Vaginal Bleeding Skin: Negative for: Rash Neurological: Negative for: Weakness, Numbness Physical Exam - Physical Exam Appears: Non-toxic, No Acute Distress Skin: Warm, Dry Head: Normacephalic Eye(s): bilateral: Normal Inspection Oral Mucosa: Moist Neck: Trachea Midline, Supple Chest: Symmetrical Cardiovascular: Rhythm Regular Respiratory: No Rales, No Rhonchi, No Wheezing Gastrointestinal/Abdominal: Bowel Sounds (normoactive), Soft, Tenderness (mild suprapubic ), No Distention, No Guarding, No Rebound Extremity: Capillary Refill <2 Sec Extremity: Bilateral: Normal Color And Temperature, Normal ROM Pulses: Left Dorsalis Pedis: Normal, Right Dorsalis Pedis: Normal Neurological/Psych: Oriented x3 Gait: Steady ED Course And Treatment - Laboratory Results Result Diagrams: 03/06/19 03:45 03/06/19 03:45 O2 Sat by Pulse Oximetry: 100 (in RA) Pulse Ox Interpretation: Normal - CT Scan/US CT Abdomen/Pelvis Other Rad Studies (CT/US): Read By Radiologist ([facility]) CT/US Interpretation: IMPRESSION: Constipation. Uncomplicated colonic diverticulosis. Unremarkable intrauterine device. Mild amount of free pelvic fluid is noted without evidence of pneumoperitoneum or fat stranding. . Electronically signed on March 06, 2019 5:45:41 AM EDT by: Delicia Cehn M.D., Certified by ROSALIND, MSK, Neuroradiology Reevaluation Time: 05:55 Reassessment Condition: Improved Medical Decision Making Medical Decision Making: Upon provider reevaluation patient is feeling better, is medically stable, and requires no further treatment in the ED at this time. Patient will be discharged home with Rx for miralax . Counseling was provided and all questions were answered regarding diagnosis and need for follow up with the referred clinic. Th ere is agreement to discharge plan. Return if symptoms persist or worsen. Disposition Counseled Patient/Family Regarding: Studies Performed, Diagnosis, Need For Followup, Rx Given - Disposition Referrals: [facility] [Outside] [facility] [Outside] Disposition: HOME/ ROUTINE Disposition Time: 02:44 Condition: FAIR Prescriptions: Polyethylene Glycol 3350 [Miralax] 17 gm PO DAILY #270 ml Instructions: Constipation, Adult (DC) Forms: [facility] (Arabic) - Clinical Impression Clinical Impression: Abdominal pain, Constipation - Scribe Statement The provider has reviewed the documentation as recorded by the Scribe (Saundra Anderson) All medical record entries made by the Scribe were at my direction and personally dictated by me. I have reviewed the chart and agree that the record accurately reflects my personal performance of the history, physical exam, medical decision making, and the department course for this patient. I have also personally directed, reviewed, and agree with the discharge instructions and disposition.
[2019-03-06] MEDS ORDERED: Sodium Chloride 0.9% 1,000 ML IV ONE (02:49)
[2019-03-06 03:53] LABS: BASO # 0.1 K/uL (0.0-0.2); BASO % 0.8 % (0.0-2.0); EOS # 0.2 K/uL (0.0-0.7); EOS % 2.4 % (0.0-4.0); HEMOGLOBIN 12.8 g/dL (11.0-16.0); LYMPH % 45.2 % (20.0-40.0); MEAN CELL VOLUME 83.1 fL (81.0-99.0); MEAN CORPUSCULAR HEMOGLOBIN 27.2 pg (27.0-31.0); MEAN CORPUSCULAR HGB CONC 32.7 g/dL (33.0-37.0); MEAN PLATELET VOLUME 9.1 fL (7.2-11.7); MONO # 0.5 K/uL (0.0-0.8); MONO % 7.5 % (0.0-10.0); NEUT # 2.9 K/uL (1.8-7.0); NEUT % 44.1 % (50.0-75.0); RBC 4.71 Mil/uL (3.80-5.20); RED CELL DISTRIBUTION WIDTH 14.4 % (11.5-14.5); WHITE BLOOD COUNT 6.7 K/uL (4.8-10.8)
[2019-03-06 03:57] LABS: SQUAMOUS EPITHIAL 4 /hpf (0-5); URINE BILIRUBIN NEGATIVE (NEGATIVE); URINE BLOOD NEGATIVE (NEGATIVE); URINE CLARITY Clear (Clear); URINE COLOR Yellow (YELLOW); URINE GLUCOSE (UA) NORMAL (Normal); URINE LEUKOCYTE ESTERASE NEG Leu/uL (Negative); URINE PROTEIN NEGATIVE (NEGATIVE)
[2019-03-06 03:59] LABS: INR 1.2; PARTIAL THROMBOPLASTIN TIME 34.2 SECONDS (21-34); PROTHROMBIN TIME 12.9 SECONDS (9.7-12.2)
[2019-03-06 04:02] LABS: HCG,QUALITATIVE URINE NEGATIVE (NEGATIVE)
[2019-03-06 04:04] LABS: ALB/GLOB RATIO 1.4 (1.0-2.1); ALBUMIN 4.1 g/dL (3.5-5.0); ALT/SGPT 30 U/L (9-52); AST/SGOT 38 U/L (14-36); BLOOD UREA NITROGEN 9 mg/dL (7-17); GFR NON-AFRICAN AMERICAN > 60; LIPASE 48 U/L (23-300)
[2019-03-06] MEDS ORDERED: Iodixanol 320 MG/ML 100 ML BOTTLE IV ONE (04:43)
[2019-03-06 06:26] VITALS: TEMP 98.1
[2019-03-06 06:31] VITALS: BP 124/78; PULSE 82; RESP 20; O2SAT 97
--- NOTE | 2019-03-06 08:46 | CT ---
Date of service: 03/06/2019 PROCEDURE: CT Abdomen and Pelvis without intravenous contrast HISTORY: Abdominal pain COMPARISON: None. TECHNIQUE: CT scan of the abdomen and pelvis was performed without administration of intravenous contrast. Oral contrast was not administered. Coronal and sagittal reformatted images were obtained. Radiation dose: Total exam DLP = 248.52 mGy-cm. This CT exam was performed using one or more of the following dose reduction techniques: Automated exposure control, adjustment of the mA and/or kV according to patient size, and/or use of iterative reconstruction technique. FINDINGS: LOWER THORAX: The visualized lungs are clear. There is a faint 4 mm nodular density in the right lower lobe. LIVER: Normal in size. No gross lesion or ductal dilatation. GALLBLADDER AND BILE DUCTS: Well distended. No calcified gallstones. No common bile duct dilatation. PANCREAS: Normal in size. No gross lesion or ductal dilatation. SPLEEN: Normal in size. ADRENALS: Normal in size. No discrete nodule. KIDNEYS AND URETERS: Both kidneys are normal in size. No hydronephrosis or nephrolithiasis. VASCULATURE: Normal in caliber. No aortic aneurysm. No aortic atherosclerotic calcification or mural plaque present. BOWEL: Evaluation of the bowel is limited in the absence of oral contrast. The small bowel loops are normal in caliber. There is moderate amount of stool scattered throughout the colon. No bowel dilatation or wall thickening. No bowel obstruction. APPENDIX: Normal appendix. PERITONEUM: Small amount of free fluid in the pelvis is likely physiologic. No free air. LYMPH NODES: No enlarged lymph nodes. BLADDER: Well distended and normal in appearance. REPRODUCTIVE: The uterus is anteverted and normal in size. An intrauterine device remains in satisfactory position. BONES: No acute fracture. Within normal limits for the patient's age. OTHER FINDINGS: None. IMPRESSION: No acute abdominal or pelvic abnormality. Constipation. IUD remains in satisfactory position. A preliminary report was provided by [facility].
== END 2019-03-06 06:29 | disposition home or self-care (01) ==
LOC: C.ER 02:08
DX: R10.9 Unspecified abdominal pain (principal); K59.00 Constipation, unspecified; J45.909 Unspecified asthma, uncomplicated; F31.9 Bipolar disorder, unspecified; R56.9 Unspecified convulsions
CPT/HCPCS: 74176; 80053; 81001; 82948; 83690; 84703; 85025; 85610; 85730; 99285; J7030